=== PATIENT | female | born 1985 | race Caucasian/White ===

== ENCOUNTER → 2017-12-17 14:45 | Outpatient (CLI) | payer BC, SELFPAY ==
[2017-12-21 07:49] LABS: HPV HC, High Risk Negative (Negative)
== END ==
PROVIDERS: Visit Provider Obstetrics & Gynecology
DX: Z12.4 Encounter for screening for malignant neoplasm of cervix (principal)
CPT/HCPCS: 87624; 88175; G0145

== ENCOUNTER → 2018-12-30 10:36 | Outpatient (CLI) | payer BC, SELFPAY ==
[2018-12-30 10:30] VITALS: BMI 45.8
[2018-12-30 12:17] LABS: Absolute Lymphocyte Count 1.57 X10^3/uL (0.83-4.51); Absolute Neutrophil Count 7.5 X10^3/uL (2.0-7.7); Basophil# 0.03 X10^3/uL; Basophil% 0.3 % (0-1); Eosinophil# 0.07 X10^3/uL; Eosinophils% 0.7 % (0-5); Hematocrit 33.8 % (37-47); Hemoglobin 11.1 g/dL (12.0-15.0); Lymphocyte # 1.57 X10^3/ul (4.0); Lymphocyte % 16.2 % (19-41); Mean Corp Hgb Conc 32.8 g/dL (32-36); Mean Corpuscular Hgb 28.8 pg (27.0-32.0); Mean Corpuscular Volume 87.6 fL (81-99); Monocyte# 0.43 X10^3/uL; Monocyte% 4.4 % (0-10); NRBC Flagged by Analyzer 0 % (0-5); Neutrophil # 7.52 X10^3/uL (2.7-7.7); Neutrophil % 77.7 % (47-70); Platelet Count 300 K/mm3 (150-450); RBC Distribution Width CV 13.1 % (11.6-14.6); RBC Distribution Width SD 41.4 fl (35.1-43.9); Red Blood Count 3.86 M/mm3 (4.2-5.4); White Blood Count 9.7 K/mm3 (4.4-11.0)
[2018-12-30 12:18] LABS: Glucose Challenge Gest 1H 50g 147 mg/dL (70-140)
== END ==
LOC: PAVLAB 10:37
PROVIDERS: Referring Provider Nurse Practitioner Women's Health; Visit Provider Nurse Practitioner Women's Health
DX: O09.90 Supervision of high risk pregnancy, unspecified, unspecified trimester (principal); O26.899 Other specified pregnancy related conditions, unspecified trimester; Z67.91 Unspecified blood type, Rh negative; Z3A.00 Weeks of gestation of pregnancy not specified
CPT/HCPCS: 36415; 82950; 85025; 86850; 86900; 86901

== ENCOUNTER → 2019-01-06 09:53 | Outpatient (CLI) | payer BC, SELFPAY ==
[2018-12-30 10:30] VITALS: BMI 45.8
[2019-01-06 10:48] LABS: Glucose GTT-Gestation. Fasting 82 mg/dL (<105)
[2019-01-06 11:51] LABS: Glucose GTT-Gestational 1 Hr 155 mg/dL (<190)
[2019-01-06 12:28] LABS: Glucose GTT-Gestational 2 Hr 156 mg/dL (<165)
[2019-01-06 14:20] LABS: Glucose GTT-Gestational 3 Hr 62 L (<145)
== END ==
PROVIDERS: Referring Provider Obstetrics & Gynecology; Visit Provider Obstetrics & Gynecology
DX: O99.810 Abnormal glucose complicating pregnancy (principal); Z3A.00 Weeks of gestation of pregnancy not specified
CPT/HCPCS: 36415; 82951; 82952

== ENCOUNTER → 2019-01-26 11:24 | Outpatient (CLI) | payer BC, SELFPAY ==
[2019-01-26 10:40] VITALS: BMI 45.8
[2019-01-26 12:24] LABS: Hepatitis B Surface Antigen Non-Reactive (Nonreactive)
[2019-01-29 02:20] LABS: Rapid Plasmin Reagin (RPR) NONREACTIVE (NONREACTIVE)
== END ==
PROVIDERS: Referring Provider Obstetrics & Gynecology; Visit Provider Obstetrics & Gynecology
DX: O09.90 Supervision of high risk pregnancy, unspecified, unspecified trimester (principal)
CPT/HCPCS: 36415; 86592; 87340

== ENCOUNTER → 2019-01-28 12:25 | Outpatient (CLI) | payer BC, SELFPAY ==
[2019-01-12 09:58] VITALS: BMI 45.8
[2019-01-26 10:40] VITALS: BMI 45.8
--- NOTE | 2019-01-28 12:26 | US_ITS ---
CLINICAL HISTORY: growth. Uterus: 01/28/2019 12:35 PM COMPARISON EXAMS AND/OR REPORTS: None US/OB Limited With Biometrics IMPRESSION: A single living fetus is identified in cephalic presentation. The placenta is posterior and not low-lying without evidence of previa. The umbilical cord insertion into the placenta appears normal. The quantity of amniotic fluid is normal with an amniotic fluid index of 19.5 cm. No uterine or adnexal abnormality identified. The cervix as seen on sagittal views, measures 5 cm in length. The following biometric data were obtained: MEASUREMENTS Biparietal Diameter 8.6 cm this corresponds to 34 weeks and 3 days. Head Circumference 31.1 cm 34 weeks and 5 days Abdominal Circumference 30.8 cm 34 weeks and 5 days Femoral Length 6 cm 31 weeks COMPOSITE AGE 33 weeks and 3 days. Ultrasound FE: March 15, 2019 AGE BY LMP 32 weeks and 2 days LMP FE: March 23, 2019 WEIGHT ESTIMATE 2262 g +/- 3 135 g Percentile by LMP 79 This examination includes a general survey of the fetus. The survey is comprised of (but not limited to)the following views where technically possible and clinically appropriate: cerebral ventricles, cerebellum, choroid plexus, cisterna magna, midline falx, cavum septi pellucidi, upper lip, four-chamber image of the heart, great vessels (and/or outflow tracts), spine, stomach (left-sided), kidneys, urinary bladder, umbilical cord insertion into the abdomen, umbilical cord vessel number, and extremities. These views were unremarkable and the situs is normal. COMMENT: END OF IMPRESSION: of 33 weeks and 3 days. No acute abnormality. Electronically Signed: Miguel Monique, at 8:59 EST , Service support ,
== END ==
LOC: OPUS 12:25
PROVIDERS: Referring Provider Obstetrics & Gynecology; Visit Provider Obstetrics & Gynecology
DX: O09.90 Supervision of high risk pregnancy, unspecified, unspecified trimester (principal); E66.9 Obesity, unspecified
CPT/HCPCS: 76816

== ENCOUNTER → 2019-02-23 15:59 | Outpatient (CLI) | payer BC, SELFPAY ==
[2019-02-23 10:39] VITALS: BMI 45.8
== END ==
PROVIDERS: Referring Provider Obstetrics & Gynecology; Visit Provider Obstetrics & Gynecology
DX: O26.899 Other specified pregnancy related conditions, unspecified trimester (principal); Z3A.36 36 weeks gestation of pregnancy
CPT/HCPCS: 87081

== ENCOUNTER → 2019-02-24 12:13 | Outpatient (CLI) | payer BC, SELFPAY ==
[2019-01-12 09:58] VITALS: BMI 45.8
[2019-02-23 10:39] VITALS: BMI 45.8
--- NOTE | 2019-02-24 12:15 | US_ITS ---
STUDY: SECOND AND THIRD TRIMESTER OBSTETRICAL ULTRASOUND REASON FOR EXAM: Female, 34 years old . growth. LMP: June 16, 2018. TECHNIQUE: Transabdominal TECHNICAL QUALITY: Adequate. PRIOR ULTRASOUND: Comparison is made with prior study dated January 28, 2019. FINDINGS: There is a single intrauterine fetus. The fetus is in a cephalic presentation. There is demonstrated cardiac activity with a heart rate of 145 bpm. There is a normal amniotic fluid volume. The largest amniotic fluid pocket measures 4.6 cm. The amniotic fluid index (SARAH) is 11.4 cm. The placenta is anterior in location and is not low lying. There are Grade 2 placental changes. The cervix not measured due to the position. The adnexal regions are not visualized. BIOMETRY: BPD: 9.2 cm: 37 weeks, 3 days HC: 33 cm: 37 weeks, 4 days AC: 31.8 cm: 35 weeks, 5 days FL: 6.9 sinus: 35 weeks, 2 days CI: 83% FL/BPD: 74% FL/HC: FL/AC: 22% HC/AC: 1.04 age by current US: 36 weeks, 3 days. FE by current US: March 21, 2019. Estimated weight: 2826 grams, +/- 418 grams, 45 %. age by prior US: 37 weeks, 1 days. FE by prior US: March 15, 2019. Age by LMP: 36 weeks, 1 days. FE by LMP: March 23, 2019. ANATOMY: The umbilical cord is seen around the posterior lateral aspect of the neck and anterior neck. US/OB Limited With Biometrics IMPRESSION: Single live injury Gestation with a mean gestational age of 37 weeks and 1 day. The measurements obtained today fall within the normal expected range. The umbilical cord is seen around the posterior lateral aspect of the neck and anterior neck. Electronically Signed: Miguel Monique, at 13:47 EST , Service support ,
== END ==
PROVIDERS: Referring Provider Obstetrics & Gynecology; Visit Provider Obstetrics & Gynecology
DX: O09.90 Supervision of high risk pregnancy, unspecified, unspecified trimester (principal); O99.210 Obesity complicating pregnancy, unspecified trimester; E66.9 Obesity, unspecified; Z3A.00 Weeks of gestation of pregnancy not specified
CPT/HCPCS: 76816

== ENCOUNTER 2019-03-09 10:20 | Outpatient (CLI) | payer BC, SELFPAY ==
[2019-03-02 10:44] VITALS: BMI 45.8
[2019-03-09 10:34] VITALS: BMI 47.7
--- NOTE | 2019-03-12 04:43 | OB.TRI.PN_ITS ---
Progress Notes Date of Service: 03/09/19 Progress Note: FHT: 130 Moderate variability reactive no decelerations category I tracing [place]: no regular Contractions - Problem List (1) Abnormal test Status: Acute Comment: increased testing deliver by 40 weeks (2) Obesity Status: Acute Qualifiers: Comment: discussed healthy weight gain in . plan growth us q 4 weeks and weekly nsts after 32 weeks (3) Supervision of high risk , antepartum Status: Acute Comment: PRR FE 03/23/19 boy [employer] Bill (Freya) Multi Select Codes - Urinary/Genital Urinary/Genital CPT Codes: 69141-90 non-stress test Interp
== END 2019-03-09 10:58 | disposition home or self-care (01) ==
PROVIDERS: Referring Provider Obstetrics & Gynecology; Visit Provider Obstetrics & Gynecology
DX: O09.90 Supervision of high risk pregnancy, unspecified, unspecified trimester (principal); O28.9 Unspecified abnormal findings on antenatal screening of mother; O99.210 Obesity complicating pregnancy, unspecified trimester; Z3A.00 Weeks of gestation of pregnancy not specified
CPT/HCPCS: 59025

== ENCOUNTER 2019-03-16 11:00 | Outpatient (CLI) | payer BC, SELFPAY ==
[2019-03-16 10:26] VITALS: BMI 47.7
[2019-03-16 11:16] VITALS: BMI 47.8
--- NOTE | 2019-03-16 21:12 | OB.TRI.PN ---
Progress Notes Date of Service: 03/16/19 Progress Note: Patient presents for triage evaluation secondary to NST for abnormal testing FHT: 130 Moderate variability reactive no decelerations category I tracing [place]: Irregular contractions Assessment and plan: Abnormal screening recommend weekly NSTs and growth ultrasound every 4 weeks reactive NST, reassuring maternal and status patient discharged to home to follow-up scheduled in the office. See problem list details for additional plan information. Multi Select Codes - Urinary/Genital Urinary/Genital CPT Codes: 11793-96 non-stress test Interp
== END 2019-03-16 12:00 | disposition home or self-care (01) ==
LOC: WPOUT 11:06 → WP 11:07
PROVIDERS: Visit Provider Obstetrics & Gynecology
DX: O28.9 Unspecified abnormal findings on antenatal screening of mother (principal); Z3A.00 Weeks of gestation of pregnancy not specified
CPT/HCPCS: 59025; 59050; 99218; G0378

== ENCOUNTER 2019-03-22 18:55 | Inpatient (IN) | payer BC, SELFPAY ==
[2019-03-22 19:49] VITALS: BMI 48.2
[2019-03-22] MEDS: Lactated Ringers 1,000 ML 50 ML IV (20:20)
[2019-03-22 20:40] LABS: Absolute Lymphocyte Count 2.66 X10^3/uL (0.83-4.51); Absolute Neutrophil Count 7.8 X10^3/uL (2.0-7.7); Basophil# 0.03 X10^3/uL; Basophil% 0.3 % (0-1); Eosinophil# 0.09 X10^3/uL; Eosinophils% 0.8 % (0-5); Hemoglobin 10.4 g/dL (12.0-15.0); Lymphocyte # 2.66 X10^3/ul (4.0); Lymphocyte % 23.4 % (19-41); Mean Corp Hgb Conc 32.5 g/dL (32-36); Mean Corpuscular Hgb 27.1 pg (27.0-32.0); Mean Corpuscular Volume 83.3 fL (81-99); Mean Platelet Vol. 8.9 fl (6.2-12.0); Monocyte# 0.73 X10^3/uL; Monocyte% 6.4 % (0-10); NRBC Flagged by Analyzer 0 % (0-5); Neutrophil # 7.76 X10^3/uL (2.7-7.7); Neutrophil % 68.3 % (47-70); Platelet Count 340 K/mm3 (150-450); RBC Distribution Width CV 13.8 % (11.6-14.6); RBC Distribution Width SD 41.7 fl (35.1-43.9); Red Blood Count 3.84 M/mm3 (4.2-5.4); White Blood Count 11.4 K/mm3 (4.4-11.0)
[2019-03-22] MEDS: 0.9% Normal Saline Single 100 ML IV.SOLN. IY (20:50)
--- NOTE | 2019-03-22 20:54 | PCM.HPOB.BLA ---
- Problem List (1) Abnormal test Status: Acute Comment: increased testing deliver by 40 weeks (2) Abnormal glucose affecting Status: Acute Comment: Normal 3 hr (3) Infertility Status: Acute Comment: donor sperm IUI (4) Obesity Status: Acute Qualifiers: Comment: discussed healthy weight gain in . plan growth us q 4 weeks and weekly nsts after 32 weeks (5) Status: Acute Qualifiers: Comment: nipt- abnormal declined [facility]. Plan growth US after 28 weeks and weekly NSTS after 32 weeks. Considering AFP. anatomy US repeat in 2 wks to reevaluate cardiac views (6) Rh negative status during Status: Acute Qualifiers: Comment: rhogam given 12/30 (7) Supervision of high risk , antepartum Status: Acute Comment: PRR FE 03/23/19 boy [employer] Kingsley (Freya) History and Physical Date of Admission: 03/22/19 Intake Vital Signs 03/16/19 Height 5 ft 9 in 03/16/19 Weight: 325 lb 03/16/19 BMI 47.9 03/16/19 BP 132/88 H 12/16/18 BMI 45.8 Intake Visit Reasons: 39 WEEK OB/NST Chief Complaint: est ob [employer] Required: No Is patient in pain?: No Allergies No Known Allergies Allergy (Verified 03/16/19 11:17) Medications Vit Calc,Iron,Folic Vitamins 1 ea PO DAILY 10/16/15 history Confirmed 03/16/19 Last Menstral Period: 06/16/18 Zika: Zika virus screening: Negative : No PFSH PFSH Medical History Infertility (Acute) PCOS (polycystic ovarian syndrome) (Acute) Surgical History H/O wisdom tooth extraction (Acute) Family History Mother Diabetes Social History (Updated 03/16/19 @ 13:40 by Tess Flowers MD) adopted: No household members: family housing: house number of children: 1 current occupational status: employed pets and animals: Yes Smoking Status: Never smoker second hand exposure: No alcohol intake: never substance use type: does not use seatbelt use: always do you feel safe at home: Yes additional social history: Spouse- Kingsley Children- 11yr- Freya (Step Child) 2yr Moon Pregancy History 2 Elective abortions Hx Para 1 Spontaneous abortions Hx # Term Pregnancies 1 Ectopic pregnancies Hx # Pregnancies Multiple births # of living children 1 Past Pregnancies Del. Date Name GA/Weeks Outcome Route Bth Weight Infant Gen Labor Lgth Anesthesia Del Locatn Provider FOB 02/01/16 Sarai 41 live - full term vacuum 9lbs 2oz Female [address] [facility] [address] Fung Delivery Date: 02/01/16 On 09/22/18 @ 13:07 Cynthia Cordova no complications HPI 39 WEEK OB/NST: Details: ISAIAH ARGUETA is a 34 year old @ 39w6d with abnormal NIPT screening presents for IOL secondary to this abnorml NIPT result. she denies any vb lof admits good fm. she denies reg ctx. OB Visit FE Calculator Estimated Delivery Date Method Current WG Current Estimate 03/23/19 LMP (Certain) 39w 0d Other Estimates 03/23/19 Manual 39w 0d Expected Delivery Route/Plan Labor Preferences- labor support person: Kingsley pain management options preferred: epidural cut cord/dad catch: yes : yes PP control planned: discussed possible routes of delivery and associated risks: special requests: Specific Issue/Plans flu vaccine: given tdap vaccine: given rhogam: given LARC form signed: declines Problem list reviewed and updated with the most current plan of care details and appropriate orders placed. Relevant counseling for the gestational age provided. Continue routine care and follow up unless otherwise noted in visit notes/problem list details Initial Weight: 275 lb Date EGA Weight BP Urine Prot Glucose FHR FuHt Pres Mov CTX Dilation Effaced St Visit Note 09/22/18 14w 0d 281 lb (+6 lb) 130/72 140 ANSELMO RGI- discussed care expectations. no vb cramping 10/21/18 18w 1d 292 lb (+17 lb) 112/62 Negative Negative 132 Active No VB, LOF. Doing well 11/18/18 22w 1d 296 lb (+21 lb) 112/78 Negative Negative 140 Active no vb cramping 12/16/18 26w 1d 306 lb (+31 lb) 122/80 Negative Negative 140 Active no vb cramping 12/30/18 28w 1d 310 lb 6 oz (+35 lb 6 oz) 120/76 147 Good Fm. No CTX, LOF, VB. 01/12/19 30w 0d 311 lb 4 oz (+36 lb 4 oz) 110/76 Negative Negative 145 good fm no vb lof good fm no regular ctx 02/02/19 33w 0d 317 lb 6 oz (+42 lb 6 oz) 126/78 Negative Negative 140 NST. good FM. No VB, LOF 02/09/19 34w 0d 319 lb (+44 lb) 130/76 Negative Negative 130 nst reactive no vb lof good fm no reg ctx 02/23/19 36w 0d 319 lb (+44 lb) 120/86 Negative Negative 135 37 1 -4 Reactive NST. Good FM. No VB, LOF or CTX. GBS 03/16/19 39w 0d 325 lb (+50 lb) 132/88 Negative Negative 138 40 1 -4 -3 No VB, LOF. Good FM. Eager for labor. To WP for NST. No reg CTX ROS: General: negative Quality Assurance Monitor: see hpi GI: otherwise negative unless documented in hpi all others reviewed and negative PE: VSSAF General: alert oriented comfortable HEENT: no thyromegaly, lymphadenopathy CV: RRR Resp: nl inspiratory effort Abdn: soft gravid NTTP approrpriate GA Ext: minimal edema Notes Visit Date: 03/16/19 ??No visit notes to display Visit Date: 02/23/19 ??Reactive NST. Good FM. No VB, LOF or CTX. GBS ??Yenni Cam NP-C on 02/23/19 Visit Date: 02/09/19 ??nst reactive no vb lof good fm no reg ctx ??Tess Flowers MD on 02/09/19 Visit Date: 02/02/19 ??NST. good FM. No VB, LOF ??MARIAJOSE Mckay on 02/02/19 Visit Date: 01/12/19 ??good fm no vb lof good fm no regular ctx ??Tess Flowers MD on 01/12/19 Visit Date: 12/30/18 ??Good Fm. No CTX, LOF, VB. ??MARIAJOSE Mckay on 12/30/18 Visit Date: 12/16/18 ??no vb cramping ??Tess Flowers MD on 12/16/18 Visit Date: 11/18/18 ??no vb cramping ??Tess Flowers MD on 11/18/18 Visit Date: 10/21/18 ??No VB, LOF. Doing well ??MARIAJOSE Mckay on 10/21/18 Visit Date: 09/22/18 ??ANSELMO RGI- discussed care expectations. no vb cramping ??Tess Flowers MD on 09/24/18 Diagnostics Diagnostics Diagnostics Blood Type A NEGATIVE 12/30/18 Antibody Screen NEGATIVE 12/30/18 Gest Glucose Tolerance MG/DL 01/06/19 Glucose 1 Hr 50 gm 147 mg/dL (70-140) H 12/30/18 Hgb 11.1 g/dL (12.0-15.0) L 12/30/18 Hct 33.8 % (37-47) L 12/30/18 RPR NONREACTIVE (NONREACTIVE) 01/26/19 Details: HIV: Urine Culture: Sequential Screen: NIPT Screen: Results POC Urinalysis 2 Dip (Clinic) Office Urine Glucose Negative Last Edit by Kallie Sanchez on 03/16/19 10:34 Office Urine Protein Negative Last Edit by Kallie Sanchez on 03/16/19 10:34 Assessment & Plan Problems 1. Abnormal test O28.9 2. Abnormal glucose affecting O99.810 3. Rh negative status during in second trimester O26.892 4. Infertility 5. Class 3 severe obesity due to excess calories without serious comorbidity with body mass index (BMI) of 40.0 to 44.9 in adult E66.9 6. 39 weeks gestation of Z3A.39 7. Supervision of high risk , antepartum O09.90 Patient presents IOL, plan management for , pitocin/AROM when able after Walton bulb falls out. Placed without difficulty. Pain management: Plans epidural. GBS negative. Management of any complications: Abnormal NIPT screening with reassuring testing I have reviewed the [facility] and made any clinically relevant updates. Orders Orders: POC Urinalysis 2 Dip (Clinic) Today Coding Level of Care Code OB Routine Diagnoses Abnormal test O28.9 Abnormal glucose affecting O99.810 Rh negative status during in second trimester O26.892 ??Trimester: second trimester Infertility Class 3 severe obesity due to excess calories without serious comorbidity with body mass index (BMI) of 40.0 to 44.9 in adult E66.9 39 weeks gestation of Z3A.39 ??Weeks of gestation: 39 weeks Supervision of high risk , antepartum O09.90
[2019-03-22] MEDS: Oxytocin 30 units/NS 500 ml 30 UNITS/500 ML IV.SOLN IV (21:42)
[2019-03-23] MEDS: Lactated Ringers 500 ML 999 ML IV ×3 (01:11→03:45)
[2019-03-23] MEDS: fentaNYL-bupivacaine (epidural) 100 ML BAG EPIDURAL ×2 (02:26→07:12)
[2019-03-23] MEDS: Lactated Ringers 1,000 ML 200 ML IV (05:02)
[2019-03-23] MEDS: Oxytocin 30 units/NS 500 ml 30 UNITS/500 ML IV.SOLN 334 UNITS IV (10:45)
--- NOTE | 2019-03-23 10:51 | PCM.OPRPT ---
Problem List (1) Abnormal test Status: Acute Comment: increased testing deliver by 40 weeks (2) Abnormal glucose affecting Status: Acute Comment: Normal 3 hr (3) Infertility Status: Acute Comment: donor sperm IUI (4) Obesity Status: Acute Qualifiers: Comment: discussed healthy weight gain in . plan growth us q 4 weeks and weekly nsts after 32 weeks (5) Status: Acute Qualifiers: Comment: nipt- abnormal declined [facility]. Plan growth US after 28 weeks and weekly NSTS after 32 weeks. Considering AFP. anatomy US repeat in 2 wks to reevaluate cardiac views (6) Rh negative status during Status: Acute Qualifiers: Comment: rhogam given 12/30 (7) Supervision of high risk , antepartum Status: Acute Comment: PRR FE 03/23/19 boy [employer] Bill (Freya) Vaginal Delivery Maternal Presentation: Medically Indicated Induction iol abnl NIPT 40 weeks Method of Induction: Pitocin, [place] Bulb Medical Reason for Induction: - - abnl NIPT screening Amniotic Membrane Rupture Type: Artificial Amniotic Fluid Description: Clear Date of Procedure: 03/23/19 Pre-Operative Diagnosis: iol nipt abnormal Post-Operative Diagnosis: same Surgery/ Procedure Performed: Spontaneous Vaginal Delivery Type of Anesthesia: Epidural Description of Procedure: Patient began pushing and delivered the head in the SHANELL presentation. The head was delivered atraumatically and a loose nuchal cord ?1 was identified and easily reduced over the infant's head. The anterior and posterior shoulders delivered without complication followed by the rest of the and the was placed on the maternal abdomen. Delayed cord clamping was employed for approximately 60 seconds. Cord was clamped and cut and gentle traction was applied to the cord and the placenta delivered spontaneously immediately following it was noted to be intact with three-vessel cord. The perineum and vagina were inspected and noted to have no laceration. EBL was 100 cc. Patient and infant tolerated delivery well. Presentation: SHANELL Placental Delivery Description: Spontaneous Placenta Disposition: [facility] Cord Vessel Description: 3 Vessels Nuchal Cord Compression: With compression Cord Entanglement: Around neck x 1, loose Estimated Blood Loss: 100 A gender: Male Episiotomy Description: None Laceration: None Medications given after delivery: IV Pitocin Complications: None Multi Select Codes - Urinary/Genital Urinary/Genital CPT Codes: 49710-03 non-stress test Interp
[2019-03-23] MEDS: Ondansetron 4 MG/2 ML Vial IV (11:22)
[2019-03-23] MEDS: Methylergonovine 0.2 MG/ML Ampul IM (11:49)
[2019-03-23] MEDS: 0.9% Saline Lock 10 ML Syringe IV (13:36)
[2019-03-23 16:00] VITALS: BP 126/72; PULSE 78; RESP 18; TEMP 36.7
[2019-03-23 19:31] VITALS: BP 118/77; PULSE 98; RESP 18; TEMP 37.8; O2SAT 97
[2019-03-23] MEDS: Senna/Docusate Sodium 1 Tablet PO (19:38)
[2019-03-23] MEDS: Acetaminophen 500 MG Tablet 1000 MG PO (19:38)
[2019-03-23 21:40] VITALS: TEMP 37.3
[2019-03-23 23:17] VITALS: BP 135/81; PULSE 83; RESP 18; TEMP 37.3
[2019-03-24 04:36] VITALS: BP 119/51; PULSE 83; RESP 17; TEMP 36.8; O2SAT 97
--- NOTE | 2019-03-24 07:40 | PCM.PN.OB ---
Subjective: doing well no complaints pain controlled no CP SOB N V ambulating well tolerating po lochia moderate, going well - Physical Exam Vitals/I&O's: Vital Signs Temp Pulse Resp BP Pulse Ox 98.3 F 83 17 119/51 L 97 03/24/19 04:36 03/24/19 04:36 03/24/19 04:36 03/24/19 04:36 03/24/19 04:36 Oxygen Delivery Method Room Air Weight: 326 lb 6.4 oz Body Mass Index (BMI) 48.2 Intake and Output for Last 24 Hours 03/22/19 03/23/19 03/24/19 23:59 23:59 23:59 Intake Total 69.17 / 183.34 3934.04 / 3934.04 Output Total 1750 / 1750 Balance 69.17 / 183.34 2184.04 / 2184.04 General: Oriented x3 Abdomen: Soft, Non Tender, Non-Distended, - - FF below U Laboratory Results 03/23/19 13:02: Screen NEGATIVE, Baby's Blood Type A POSITIVE, Baby's BLAKE NEGATIVE Current Medications Acetaminophen (Tylenol) 1,000 mg PO Q8H PRN PRN PRN Reason: Pain Score 1-3/10 Last Admin: 03/23/19 19:38 Dose: 1,000 mg Documented by: Bisacodyl (Dulcolax) 10 mg RECTAL UD PRN PRN Reason: If no BM Dibucaine (Dibucaine) 1 applic TOPICAL TID PRN PRN; Protocol PRN Reason: Discomfort Hydrocortisone (Hytone) 1 applic TOPICAL TID PRN PRN; Protocol PRN Reason: Discomfort Methylergonovine Maleate (Methergine) 0.2 mg IM X1 PRN PRN Reason: Excess bleeding/uterine atony Last Admin: 03/23/19 11:49 Dose: 0.2 mg Documented by: Naproxen (Naprosyn) 500 mg PO Q8H PRN PRN PRN Reason: Pain Score 1-3/10 Ondansetron HCl (Zofran) 4 mg IV Q4H PRN PRN PRN Reason: Nausea Oxycodone HCl (Oxyir) 5 - 10 mg PO Q4H PRN PRN PRN Reason: Pain Score 4-10/10 Multivit/Folic Acid/Iron (Prenatabs Fa) 1 tablet PO DAILY@1200 BENITO Last Admin: 03/23/19 14:13 Dose: Not Given Documented by: Senna/Docusate Sodium (Senokot-S, Keily-Colace) 1 - 2 tablet PO DAILY PRN PRN PRN Reason: Constipation Last Admin: 03/23/19 19:38 Dose: 1 tablet Documented by: Simethicone (Mylicon) 80 mg PO PCHS PRN PRN Reason: Indigestion/Stomach pain Sodium Chloride () 5 - 15 ml IV UD PRN PRN Reason: SALINE FLUSH Last Admin: 03/23/19 13:36 Dose: 10 ml Documented by: Medical Necessity - Tobacco Use Smoking Status: Never smoker Assessment/Plan All Active Problems (Last Reviewed 03/16/19 @ 10:26 by Kallie Sanchez) Abnormal test (Acute) Abnormal glucose affecting (Acute) Rh negative status during (Acute) Infertility (Acute) Obesity (Acute) (Acute) Supervision of high risk , antepartum (Acute) s/p PPD # 1 1. routine post delivery care 2. breast feeding- support given 3. rh negative-rhogam given 4. rubella immune 5 home today
--- NOTE | 2019-03-24 07:41 | DCINST_ITS ---
Additional Instructions: If you experience any of the following, contact your healthcare provider. * Bleeding that soaks a pad every hour for 2 hours * Fever 100.4 or higher * Unrelieved incision or abdominal pain * Swelling, redness, discharge or bleeding from your incision or episiotomy site * Your incision begins to separate * Problems urinating (including inability to urinate or burning while urinating). * Visual changes * Severe headache * Flu-like symptoms * Pain or redness in one of both of your breasts * Pain, warmth, tenderness or swelling in your legs, especially the calf area * Frequent nausea and vomiting * Symptoms of depression or anxiety If you experience any of the following, call 911 or go to the nearest Emergency Room. * Chest pain * Problems breathing * Seizure activity * Partial or complete paralysis of a body part, slurred speech, weakness or drooping of the face, or a sudden inability to walk or hold your balance Allergies/Adverse Reactions: Allergies No Known Allergies Allergy (Verified 03/22/19 19:51) Medications to take at Discharge Vit Calc,Iron,Folic [ Vitamins] 1 ea PO DAILY 10/16/15 Primary Care Physician: Care Physician,No Primary [Primary Care Provider] - Test Results: Test results from this visit will be discussed in further detail at your follow- up appointment, if applicable.
--- NOTE | 2019-03-24 07:41 | PCM.DCVAG ---
Additional Instructions: If you experience any of the following, contact your healthcare provider. Bleeding that soaks a pad every hour for 2 hours Fever 100.4 or higher Unrelieved incision or abdominal pain Swelling, redness, discharge or bleeding from your incision or episiotomy site Your incision begins to separate Problems urinating (including inability to urinate or burning while urinating). Visual changes Severe headache Flu-like symptoms Pain or redness in one of both of your breasts Pain, warmth, tenderness or swelling in your legs, especially the calf area Frequent nausea and vomiting Symptoms of depression or anxiety If you experience any of the following, call 911 or go to the nearest Emergency Room. Chest pain Problems breathing Seizure activity Partial or complete paralysis of a body part, slurred speech, weakness or drooping of the face, or a sudden inability to walk or hold your balance Allergies/Adverse Reactions: Allergies No Known Allergies Allergy (Verified 03/22/19 19:51) Medications to take at Discharge Vit Calc,Iron,Folic [ Vitamins] 1 ea PO DAILY 10/16/15 Primary Care Physician: Care Physician,No Primary [Primary Care Provider] - Test Results: Test results from this visit will be discussed in further detail at your follow-up appointment, if applicable.
[2019-03-24 07:55] VITALS: BP 125/78; PULSE 81; RESP 16; TEMP 37
[2019-03-24 12:50] VITALS: BP 114/76; PULSE 89; RESP 14; TEMP 36.8
== END 2019-03-24 14:20 | disposition home or self-care (01) | DRG 807 ==
PROVIDERS: Admitting Provider Obstetrics & Gynecology; Visit Provider Obstetrics & Gynecology
DX: O28.5 Abnormal chromosomal and genetic finding on antenatal screening of mother (principal); Z37.0 Single live birth; O99.814 Abnormal glucose complicating childbirth; O99.214 Obesity complicating childbirth; E66.9 Obesity, unspecified; O69.1XX0 Labor and delivery complicated by cord around neck, with compression, not applicable or unspecified; O26.893 Other specified pregnancy related conditions, third trimester; Z67.11 Type A blood, Rh negative; Z3A.40 40 weeks gestation of pregnancy
CPT/HCPCS: 59025; 59050; 76815; 85025; 85461; 86850; 86900; 86901; 90384; 99218; J7120; A4216; G0378; J2405; J2790

== ENCOUNTER → 2020-11-21 15:15 | Outpatient (CLI) | payer BC, SELFPAY ==
[2020-11-21 16:17] LABS: Absolute Lymphocyte Count 2.77 X10^3/uL (0.83-4.51); Absolute Neutrophil Count 5.2 X10^3/uL (2.0-7.7); Basophil# 0.03 X10^3/uL; Basophil% 0.3 % (0-1); Eosinophil# 0.12 X10^3/uL; Eosinophils% 1.4 % (0-5); Hematocrit 41.6 % (37-47); Lymphocyte # 2.77 X10^3/ul (0.83-4.51); Lymphocyte % 32.2 % (19-41); Mean Corp Hgb Conc 31.3 g/dL (32-36); Mean Corpuscular Hgb 26.4 pg (27.0-32.0); Mean Corpuscular Volume 84.6 fL (81-99); Mean Platelet Vol. 8.9 fl (6.2-12.0); Monocyte# 0.49 X10^3/uL; Monocyte% 5.7 % (0-10); NRBC Flagged by Analyzer 0 % (0-5); Neutrophil # 5.19 X10^3/uL (2.7-7.7); Neutrophil % 60.3 % (47-70); Platelet Count 405 K/mm3 (150-450); RBC Distribution Width CV 13.2 % (11.6-14.6); RBC Distribution Width SD 41.1 fl (35.1-43.9); Red Blood Count 4.92 M/mm3 (4.2-5.4); White Blood Count 8.6 K/mm3 (4.4-11.0)
[2020-11-21 16:32] LABS: Thyroid Stim Hormone (TSH) 0.85 uIU/mL (0.358-3.74)
== END ==
LOC: PAVLAB 15:17
PROVIDERS: Referring Provider Obstetrics & Gynecology; Visit Provider Obstetrics & Gynecology
DX: N93.9 Abnormal uterine and vaginal bleeding, unspecified (principal)
CPT/HCPCS: 36415; 84443; 85025

== ENCOUNTER → 2022-05-17 | Outpatient (CLI) | payer OTHER, SELFPAY ==
[2022-05-17 10:41] LABS: HIV - WCH Non-Reactive (Nonreactive); Hepatitis B Surface Antigen Non-Reactive (Nonreactive); Hepatitis C Antibody Non-Reactive (Nonreactive); Syphilis Antibodies Non-reactive
[2022-05-18 19:57] LABS: HSV 1 IgG > 62.20 index (0.00-0.90); HSV 2 IgG < 0.91 index (0.00-0.90)
[2022-05-18 20:07] LABS: Chlamydia By Nucleic Acid AMP Positive (Negative)
[2022-05-18 22:07] LABS: Gonococcus By Nucleic Acid AMP Negative (Negative)
[2022-05-23 18:48] LABS: HPV APTIMA, High Risk Negative (Negative)
== END | disposition home or self-care (01) ==
PROVIDERS: Referring Provider Obstetrics & Gynecology; Visit Provider Obstetrics & Gynecology
DX: Z12.4 Encounter for screening for malignant neoplasm of cervix (principal); Z11.3 Encounter for screening for infections with a predominantly sexual mode of transmission
CPT/HCPCS: 36415; 86695; 86696; 86703; 86780; 86803; 87340; 87491; 87591; 87624; 88175; G0145

== ENCOUNTER → 2022-05-23 | Outpatient (CLI) | payer OTHER, SELFPAY ==
--- NOTE | 2022-05-23 15:03 | US_ITS ---
INDICATION: enlarged thyroid EXAMINATION: Ultrasound US Thyroid (eg thyroid, parathyroid, parotid) TECHNIQUE: Pitt scale and color doppler imaging was performed of the thyroid gland. COMPARISON: None. FINDINGS: RIGHT THYROID LOBE: 5.2 x 1.6 x 2.2 cm. Homogeneous echotexture with normal vascularity. Nodules: Mid thyroid hypoechoic 0.4 x 0.3 x 0.5 cm nodule with indistinct margins, wider than tall without calcifications; TI-RAD 4 LEFT THYROID LOBE: 4.5 x 1.6 x 2.1 cm. Homogeneous echotexture with normal vascularity. [No thyroid nodules are present. Nodules: Inferior thyroid hypoechoic 0.70 x 0.67 x 0.70 cm nodule with indistinct margins, wider than tall, without calcifications; TI-RAD 4 ISTHMUS: 0.2 cm. No thyroid nodules are present. US/Thyroid IMPRESSION: Diffuse thyromegaly Bilateral subcentimeter nodules, largest left inferior thyroid, TI-RAD 4 by ACR 2017 criteria. Despite being subcentimeter would recommend follow-up ultrasound in one year as the left lower pole nodule is nearly as tall as wide which would increase the lesion to TI-RAD 5. Electronically Signed: Mauricio Diaz MD at 9:06 EST ,
== END | disposition home or self-care (01) ==
PROVIDERS: Referring Provider Obstetrics & Gynecology; Visit Provider Obstetrics & Gynecology
DX: E04.9 Nontoxic goiter, unspecified (principal)
CPT/HCPCS: 76536

== ENCOUNTER → 2023-08-30 | Outpatient (CLI) | payer OTHER, SELFPAY ==
[2023-08-30 12:20] LABS: Absolute Lymphocyte Count 2.05 X10^3/uL (0.83-4.51); Absolute Neutrophil Count 4.2 X10^3/uL (2.0-7.7); Basophil# 0.03 X10^3/uL; Basophil% 0.4 % (0-1); Eosinophil# 0.08 X10^3/uL; Eosinophils% 1.2 % (0-5); Hematocrit 40.8 % (37-47); Hemoglobin 13.4 g/dL (12.0-15.0); Lymphocyte # 2.05 X10^3/ul (0.83-4.51); Lymphocyte % 30.3 % (19-41); Mean Corp Hgb Conc 32.8 g/dL (32-36); Mean Corpuscular Hgb 27.5 pg (27.0-32.0); Mean Corpuscular Volume 83.6 fL (81-99); Monocyte# 0.41 X10^3/uL; Monocyte% 6.1 % (0-10); NRBC Flagged by Analyzer 0 % (0-5); Neutrophil # 4.17 X10^3/uL (2.7-7.7); Neutrophil % 61.7 % (47-70); Platelet Count 294 K/mm3 (150-450); RBC Distribution Width CV 12.7 % (11.6-14.6); RBC Distribution Width SD 38.2 fl (35.1-43.9); Red Blood Count 4.88 M/mm3 (4.2-5.4); White Blood Count 6.8 K/mm3 (4.4-11.0)
[2023-08-30 13:18] LABS: Thyroid Stim Hormone (TSH) 1.17 uIU/mL (0.358-3.74)
[2023-09-03 03:07] LABS: Chlamydia By Nucleic Acid AMP Negative (Negative); Gonococcus By Nucleic Acid AMP Negative (Negative)
== END | disposition home or self-care (01) ==
PROVIDERS: Referring Provider Obstetrics & Gynecology; Visit Provider Obstetrics & Gynecology
DX: Z11.3 Encounter for screening for infections with a predominantly sexual mode of transmission (principal); N93.9 Abnormal uterine and vaginal bleeding, unspecified
CPT/HCPCS: 36415; 84443; 85025; 87491; 87591